=== PATIENT | male | born 1930 | race Caucasian/White ===

== ENCOUNTER 2016-08-16 00:53 | Emergency (ER) ==
[2016-08-16] MEDS ORDERED: SODIUM CHLORIDE 1,000 ML IV STA (00:57)
[2016-08-16 01:04] VITALS: BP 144/70; TEMP 98.3; BMI 23.4
--- NOTE | 2016-08-16 01:04 | ED.PDOC ---
General ED Provider: Dr. COURTNEY GRANDE Chief Complaint: Syncope Stated Complaint: Patient is brought by a rn palliative care who while walking to the bathroom almost had a syncopal episode a wheelchar had to be brought behind him to prevent a fall. Has been more aggitated recently. Otherwise has been eating or drinking ok. Time Seen by Physician: 01:00 Exam Limitations: No limitations Nursing and Triage Documentation Reviewed and Agree: Yes Neurological Complaint Exam - Syncope/Near Syncope Complaint/Exam Onset/Duration: 1 hour ago Symptoms Are: Resolved Number of Episodes: 1 Frequency of Episodes: 1 Episodes Witnessed: Yes Loss of Consciousness: No Associated Head Trauma: No Activity at Onset: Unknown Aggravating: None Associated Signs and Symptoms: Reports: Lightheadedness, Dizziness, Weakness. Denies: Pain, Decreased oral intake, Vomiting, Diarrhea, GI blood loss, Short of air, Chest pain, Palpitations, Diaphoresis, AMS, Numbness, Headache, Seizure , Remote head trauma, Recent head trauma Cardiac Risk Factors: Reports: None GI Bleed Risk Factors: Reports: None Dysrhythmia Risk Factors: Reports: None Related Surgical History: Reports: None JVD Present: No Carotid Bruit Present: No Rectal Heme Positive: No Glascow Coma Scale (see protocol): 15 Nystagmus Present: No Gag Reflex Present: No Meningeal Signs Positive: No Focal Weakness: Present: None Focal Sensory Loss: Present: None Gait: Unsteady Babinski Sign: Negative Right, Negative Left Derby-Hallpike Test Positive: No Differential Diagnoses: SC, CVA, Metabolic Reaction Quality Indicators for Cardiac Chest Pain: EKG in 10min. Quality Indicator For Non-Traumatic Chest Pain/Syncope: EKG Performed Review of Systems - Review Of Systems Constitutional: Reports: Weakness Eyes: Reports: Other (Linited due to condition. 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, Other (mental retardation) Musculoskeletal: Reports: None Cancer: Reports: None - Surgical History General Surgical History: Reports: Unknown - Family History Family History: Reports: Unknown - Social History Smoking Status: Never smoker Hx Substance Use: No Alcohol Screening: None Physical Exam - Physical Exam Appearance: Well-appearing, Ill-appearing, No pain distress, Well-nourished Ill-appearing: Mild Eyes: DULCE MARIA, EOMI, Conjunctiva clear ENT: Nose normal, Oropharynx normal Neck: Supple Respiratory: Airway patent, Breath sounds clear, Breath sounds equal, Respirations nonlabored Cardiovascular: RRR, Pulses normal, No rub, No murmur GI/: Soft, Nontender, No masses, Bowel sounds normal, No Organomegaly Musculoskeletal: Normal strength, ROM intact, No edema, No calf tenderness Skin: Warm, Dry, Normal color Neurological: Sensation intact, Motor intact (but rigidity noted ), Cranial nerves intact, Alert, Oriented Psychiatric: Anxious Interpretation - Radiology Interpretation Radiology Interpretation By: Radiologist Radiology Results: No acute changes (Atrophy Ventriculaomeagaly stable) Exam Interpreted: CT Scan (Head Negative ) - EKG Interpretation Time of EKG #1: 01:14 Rate: Normal Rhythm: Sinus Ectopy: None [place]: [place] Critical Care Note - Critical Care Note Total Time (mins): 0 Course - Course Hematology/Chemistry: 08/16/16 01:00 08/16/16 01:00 Orders, Labs, Meds: Lab Review 08/16/16 01:00 WBC 6.97 RBC 3.51 L Hgb 10.7 L Hct 32.9 L MCV 93.7 MCH 30.5 MCHC 32.5 RDW Coeff of Dianna 13.9 Plt Count 234 Immature Gran % (Auto) 0.1 Neut % (Auto) 67.2 Lymph % (Auto) 22.7 [place] % (Auto) 8.3 Eos % (Auto) 1.0 Baso % (Auto) 0.7 Immature Gran # (Auto) 0.0 Neut # 4.7 Lymph # 1.6 [place] # 0.6 Eos # 0.1 Baso # 0.1 Sodium 141 Potassium 4.0 Chloride 106 Carbon Dioxide 24 Anion Gap 15.0 BUN 18 Creatinine 0.74 Estimated GFR (MDRD) 100.00 BUN/Creatinine Ratio 24.32 Glucose 104 Calcium 8.7 Total Bilirubin 0.30 AST 24 ALT 23 Alkaline Phosphatase 126 H Total Creatine Kinase 104 Troponin I < 0.0100 Total Protein 7.1 Albumin 3.6 Globulin 3.5 Albumin/Globulin Ratio 1.03 Orders Category Date Time Status EKG-(ED ONLY) Stat CARDIO 08/16/16 00:57 Completed ED IV/MEDIPORT/POWERPORT .ONCE EMERGENCY 08/16/16 00:57 Active CBC W/ AUTO DIFF Stat LAB 08/16/16 01:00 Completed COMPREHENSIVE METABOLIC PANEL Stat LAB 08/16/16 01:00 Completed CREATINE KINASE Stat LAB 08/16/16 01:00 Completed TROPONIN I Stat LAB 08/16/16 01:00 Completed 0.9 % Sodium Chloride [Saline Flush] MEDS 08/16/16 00:57 Discontinued 1 syr IVF PRN PRN Sodium Chloride 0.9% [Sodium Chloride] 1,000 ml MEDS 08/16/16 00:57 Discontinued IV 125 mls/hr CT HEAD W/O CONTRAST Stat RADS 08/16/16 00:57 Completed Medications Discontinued Medications Generic Name Dose Route Start Last Admin Trade Name Freq PRN Reason Stop Dose Admin Sodium Chloride 1,000 mls @ 125 mls/hr 08/16/16 00:57 08/16/16 01:45 Sodium Chloride IV 08/16/16 08:56 125 mls/hr .Q8H STA Administration Sodium Chloride 1 syr 08/16/16 00:57 Saline Flush IVF PRN PRN To flush IV Vital Signs: Temp Pulse Resp BP Pulse Ox 08/16/16 00:54 98.3 F 90 16 144/70 H 99 Departure - Departure Time of Disposition: 02:01 Disposition: HOME SELF-CARE Discharge Problem: Near syncope Instructions: Syncope (ED) Condition: Stable Pt referred to PMD for follow-up: Yes Additional Instructions: Push fluids Return to ER if worse Follow up with PCP in 3 days Allergies/Adverse Reactions: Allergies tuberculin, purified protein deriva [tuberculin,purif.prot.deriv.] Adverse Reaction (Verified 08/16/16 02:02) Home Medications: Ambulatory Orders Acetaminophen [Tylenol] 650 mg PO Q4H PRN 05/15/14 Calcium Carbonate/Vitamin D3 [Caltrate 600 + D Tablet] 1 each PO BID 05/15/14 Finasteride [Proscar] 5 mg PO BEDTIME 05/15/14 Magnesium Hydroxide [Milk of Magnesia] 30 ml PO EVERY OTHER DAY 05/15/14 Polyethylene Glycol 3350 [Miralax] 17 gm PO DAILY 05/15/14 Sennosides/Docusate Sodium [Senokot-S Tablet] 2 each PO BID 05/15/14 Tamsulosin HCl [Flomax] 0.4 mg PO BEDTIME 05/15/14 Aspirin [Aspirin EC] 325 mg PO DAILYWM 05/07/15 Disposition Discussed With: Patient
[2016-08-16 01:44] LABS: BASOPHILS # (AUTO) 0.1 K/uL (0-0.2); BASOPHILS % (AUTO) 0.7 % (0.0-3.0); EOSINOPHILS # (AUTO) 0.1 K/ul (0.0-0.7); HEMATOCRIT 32.9 % (42.0-52.0); HEMOGLOBIN 10.7 g/dl (14.0-18.0); IMMATURE GRANULOCYTE % (AUTO) 0.1 % (0.0-5.0); LYMPHOCYTES # (AUTO) 1.6 K/uL (0.60-3.4); LYMPHOCYTES % (AUTO) 22.7 (10.0-50.0); MEAN CORPUSCULAR HEMOGLOBIN 30.5 pg (27.0-31.0); MEAN CORPUSCULAR HGB CONC 32.5 (31.8-35.4); MEAN CORPUSCULAR VOLUME 93.7 fl (80.0-94.0); MONOCYTES # (AUTO) 0.6 K/uL (0.4-2.0); MONOCYTES % (AUTO) 8.3 (0-10); NEUTROPHILS # (AUTO) 4.7 K/ul (2.0-6.9); NEUTROPHILS % (AUTO) 67.2; PLATELET COUNT 234 10^3/uL (140-440); RED BLOOD COUNT 3.51 10^6/ul (4.70-6.10); WHITE BLOOD COUNT 6.97 K/ul (4.2-10.2)
--- NOTE | 2016-08-16 01:59 | CT ---
EXAM: CT brain without contrast HISTORY: Near syncope TECHNIQUE: CT of the brain without intravenous contrast FINDINGS: There is no acute hemorrhage midline shift or mass effect. No abnormal extra-axial fluid collections. There is moderate ventriculomegaly probably stable from 11/12/2015. Generalized corti vivek atrophy, moderate. Chronic microvascular changes of the white matter tracts, mild. The bony cr anium appears normal. The visualized paranasal sinuses are clear. Soft tissues without significant a bnormality. IMPRESSION: 1. Involutional atrophy and chronic microvascular changes of the white matter tracts. 2. Ventriculomegaly stable from 11/12/2015.
[2016-08-16 02:05] LABS: ALANINE AMINOTRANSFERASE 23 U/L (12-78); ALBUMIN 3.6 g/dL (3.4-5.0); ALBUMIN/GLOBULIN RATIO 1.03; ALKALINE PHOSPHATASE 126 U/L (56-119); ASPARTATE AMINO TRANSFERASE 24 U/L (15-37); BLOOD UREA NITROGEN 18 mg/dL (7-18); BUN/CREATININE RATIO 24.32; CALCIUM 8.7 mg/dL (8.2-10.2); CARBON DIOXIDE 24 mmol/L (23-31); CHLORIDE 106 mmol/L (98-107); CREATINE KINASE 104 U/L; CREATININE 0.74 mg/dL (0.60-1.10); GLUCOSE 104 mg/dL (82-115); SODIUM 141 mmol/L (136-145); TOTAL PROTEIN 7.1 g/dL (5.8-8.1)
== END 2016-08-16 03:09 | disposition home or self-care (01) ==
LOC: ED 00:53
DX: R55 Syncope and collapse (principal); I10 Essential (primary) hypertension; F79 Unspecified intellectual disabilities; Z79.899 Other long term (current) drug therapy
CPT/HCPCS: 36415; 80053; 82550; 84484; 85025; 93005; 93010; 96360; 99283

== ENCOUNTER 2016-08-31 08:44 | Emergency (ER) ==
[2016-08-31 08:52] VITALS: BP 158/72; TEMP 97.7; BMI 21.3
[2016-08-31 09:25] LABS: BASOPHILS # (AUTO) 0.1 K/uL (0-0.2); BASOPHILS % (AUTO) 0.7 % (0.0-3.0); EOSINOPHILS % (AUTO) 0.6 % (0.0-7.0); HEMATOCRIT 33.5 % (42.0-52.0); IMMATURE GRANULOCYTE % (AUTO) 0.1 % (0.0-5.0); LYMPHOCYTES # (AUTO) 1.3 K/uL (0.60-3.4); LYMPHOCYTES % (AUTO) 17.6 (10.0-50.0); MEAN CORPUSCULAR HEMOGLOBIN 30.9 pg (27.0-31.0); MEAN CORPUSCULAR HGB CONC 32.8 (31.8-35.4); MEAN CORPUSCULAR VOLUME 94.1 fl (80.0-94.0); MONOCYTES # (AUTO) 0.7 K/uL (0.4-2.0); MONOCYTES % (AUTO) 9.4 (0-10); NEUTROPHILS # (AUTO) 5.1 K/ul (2.0-6.9); NEUTROPHILS % (AUTO) 71.6; PLATELET COUNT 247 10^3/uL (140-440); RED BLOOD COUNT 3.56 10^6/ul (4.70-6.10); WHITE BLOOD COUNT 7.12 K/ul (4.2-10.2)
[2016-08-31 09:44] LABS: ALBUMIN 3.8 g/dL (3.4-5.0); ALBUMIN/GLOBULIN RATIO 1.09; ANION GAP 12.1; BILIRUBIN,TOTAL 0.32 mg/dL (0.00-1.20); BUN/CREATININE RATIO 22.36; CREATININE 0.76 mg/dL (0.60-1.10); POTASSIUM 4.1 mmol/L (3.5-5.1); TOTAL PROTEIN 7.3 g/dL (5.8-8.1)
--- NOTE | 2016-08-31 09:52 | CT ---
EXAM: CT of the chest without contrast History: Cough. Comparison: CT abdomen pelvis 08/31/2016, chest radiograph 11/12/2015 Technique: Multiplanar CT images through the thorax were obtained without the administration of IV contrast Findings: Upper limits of normal heart size. Valvular calcifications of the heart. No pericardial effusion. Great vessels are grossly unremarkable on this noncontrast study. No pathologically enl arged axillary or mediastinal lymph nodes. Evaluation for hilar lymph nodes is limited due to the l ack of contrast administration but no bulky hilar adenopathy is seen. No pneumothorax and no pleural fluid. Mild lower lobe bronchial wall thickening and minimal bibasil ar ground-glass changes. No suspicious lung nodules or lung masses. For details in the upper abdomen, please see dedicated CT abdomen pelvis done on the same day. No a cute osseous abnormalities. Diffuse idiopathic skeletal hyperostosis of the thoracic spine. Impression: 1. Mild lower lobe bronchial wall thickening most likely infectious or inflammatory etiology. 2. Mild bibasilar ground-glass opacities either related to dependent atelectasis or minimal pneumon itis.
--- NOTE | 2016-08-31 10:06 | CT ---
EXAM: CT abdomen pelvis without contrast HISTORY: Pain COMPARISON: None TECHNIQUE: CT abdomen pelvis performed without intravenous contrast. Coronal and sagittal reformat margarette images obtained. FINDINGS: Please see separate report CT chest regarding findings in the lower chest. No free air. No acute abnormalities of the bones. There is degenerative change in the spine. Evaluation organ parenchyma limited without contrast. There is a 1 cm hypodensity in the liver that is too small to characterize. There is a small gallstone. Pancreas appears normal. Spleen appears normal, excepti ng for granulomatous calcification. Adrenals appear normal. No hydronephrosis or nephrolithiasis. No calculi visualized in normal course of the ureters. Tiny right posterior bladder calculi versus minimal bladder wall calcification. Prostate normal in size. The right fat-containing inguinal he rnia. Aorta normal in caliber with atherosclerosis. No lymphadenopathy or ascites. Stomach appear s normal. No dilated loops small bowel. Appendix appears normal. There is abnormal configuration of the cecum and distal ileum with swirling of the mesentery and vascular and bowel in this region ( coronal image 21 - 43). Additionally, the central mesenteric vessels are abnormal in course and cou rse abnormally to the right into this region. Mild haziness of the mesentery in this region. Additi onally, small bowel located to the right of the large bowel in the right abdomen. Though incomplete ly imaged on the prior examination CT pelvis 05/24/2014, this configuration of the bowel appears new from prior examination. Findings are suggestive of an internal hernia. Mild moderate fecal retent ion. IMPRESSION: 1. Findings suggesting internal hernia right abdomen with abnormal configuration of the cecum and d istal small bowel. No evidence for obstruction at this time. Surgical consultation recommended. 2. Mild to moderate fecal retention. 3. Cholelithiasis. 4. Several tiny bladder calculi versus minimal bladder wall calcification. Critical finding #[address] Adams 9:58 a.m. 08/31/2016
--- NOTE | 2016-08-31 10:37 | ED.PDOC ---
General ED Provider: Dr. MEGGAN TELLEZ Chief Complaint: Weakness Stated Complaint: weakness Time Seen by Physician: 09:00 (nurse at bedside ) Mode of Arrival: Wheelchair Information Source: Assisted Living Primary Care Provider: KATI EUGENE Nursing and Triage Documentation Reviewed and Agree: Yes (candis was present during abdominal exam pt had no pain) Miscellaneous Complaint Exam - Complex/Multi-System Complaint/Exam Symptoms Are: Resolved Episodes Lasting: Weeks Initial Severity: Mild Current Severity: None Location of Pain: none Associated Signs and Symptoms: Denies: Decreased responsiveness, Confusion, Agitation, Dizziness, Weakness, Syncope, Headache, Short of air, Cough, Wheezing , Hemoptysis, Chest pain, Palpitations, Edema, Nausea, Vomiting, Diarrhea, Abdominal pain, Back pain, Dysuria, Hematemesis, Melena, Decreased oral intake, Fever, Diaphoresis, Immunocompromised, Anticoagulation Therapy, Recent medication changes, Indwelling registered medical transcriptionist, Prior MRSA, Prior VRE, Recent trauma, Remote trauma Recent Echo/LV Function: No Respiratory Distress: None JVD Present: No Tachypnea Present: No Stridor Present: No Abdominal Findings: Present: Normal findings Glascow Coma Scale (see protocol): 15 Meningeal Signs Positive: No Focal Weakness: Present: None Focal Sensory Loss: Present: None Gait: Normal Gag Reflex Present: Yes Babinski Sign: Negative Right, Negative Left Skin Findings: Present: Normal findings Joint Swelling Present: No Differential Diagnosis: Metabolic Abnormality Quality Indicators for Cardiac Chest Pain: EKG in 10min. Quality Indicators for AMI: EKG in 10min. Review of Systems - Review Of Systems Constitutional: Reports: Weakness Eyes: Reports: No symptoms Ears, Nose, Mouth, Throat: Reports: No symptoms Respiratory: Reports: No symptoms Cardiac: Reports: No symptoms GI: Reports: No symptoms : Reports: No symptoms Musculoskeletal: Reports: No symptoms Skin: Reports: No symptoms Neurological: Reports: No symptoms Endocrine: Reports: No symptoms Hematologic/Lymphatic: Reports: No symptoms All Other Systems: Reviewed and Negative Past Medical History - Past Medical History Previously Healthy: Yes Endocrine: Reports: None Cardiovascular: Reports: Hypertension Respiratory: Reports: None Hematological: Reports: None Gastrointestinal: Reports: None Genitourinary: Reports: None Neuro/Psych: Reports: None, Other (mental retardation) Musculoskeletal: Reports: None Cancer: Reports: None - Surgical History General Surgical History: Reports: Unknown - Family History Family History: Reports: Unknown - Social History Smoking Status: Never smoker Hx Substance Use: No Alcohol Screening: None Physical Exam - Physical Exam Appearance: Well-appearing, No pain distress, Well-nourished Eyes: DULCE MARIA, EOMI, Conjunctiva clear ENT: Ears normal, Nose normal, Oropharynx normal Respiratory: Airway patent, Breath sounds clear, Breath sounds equal, Respirations nonlabored Cardiovascular: RRR, Pulses normal, No rub, No murmur GI/: Soft, Nontender, No masses, Bowel sounds normal, No Organomegaly Musculoskeletal: Normal strength, ROM intact, No edema, No calf tenderness Skin: Warm, Dry, Normal color Neurological: Sensation intact, Motor intact, Reflexes intact, Cranial nerves intact, Alert, Oriented Psychiatric: Affect appropriate, Mood appropriate Interpretation - Radiology Interpretation Radiology Interpretation By: Radiologist Radiology Results: Positive (herina right abdomen discussed with doctor estrellita he stated since he is pain free he would not operate at this time) Critical Care Note - Critical Care Note Total Time (mins): 0 Course - Course Hematology/Chemistry: 08/31/16 09:20 08/31/16 09:20 Orders, Labs, Meds: Lab Review 08/31/16 09:20 WBC 7.12 RBC 3.56 L Hgb 11.0 L Hct 33.5 L MCV 94.1 H MCH 30.9 MCHC 32.8 RDW Coeff of Dianna 14.1 Plt Count 247 Immature Gran % (Auto) 0.1 Neut % (Auto) 71.6 Lymph % (Auto) 17.6 [place] % (Auto) 9.4 Eos % (Auto) 0.6 Baso % (Auto) 0.7 Immature Gran # (Auto) 0.0 Neut # 5.1 Lymph # 1.3 [place] # 0.7 Eos # 0.0 Baso # 0.1 Sodium 139 Potassium 4.1 Chloride 107 Carbon Dioxide 24 Anion Gap 12.1 BUN 17 Creatinine 0.76 Estimated GFR (MDRD) 97.00 BUN/Creatinine Ratio 22.36 Glucose 126 H Lactic Acid 16.3 Calcium 9.0 Total Bilirubin 0.32 AST 22 ALT 25 Alkaline Phosphatase 128 H Total Protein 7.3 Albumin 3.8 Globulin 3.5 Albumin/Globulin Ratio 1.09 Orders Category Date Time Status EKG-(ED ONLY) Stat CARDIO 08/31/16 09:09 Ordered BLOOD CULTURE Stat LAB 08/31/16 09:20 Received CBC W/ AUTO DIFF Stat LAB 08/31/16 09:20 Completed COMPREHENSIVE METABOLIC PANEL Stat LAB 08/31/16 09:20 Completed LACTIC ACID Stat LAB 08/31/16 09:20 Completed URINALYSIS C & S IF INDICATED Stat LAB 08/31/16 09:[address] ABDOMEN/PELVIS WO CONTRAST Stat RADS 08/31/16 09:[address] CHEST W/O CONTRAST Stat RADS 08/31/16 09:04 Completed Vital Signs: Temp Pulse Resp BP Pulse Ox 08/31/16 08:44 97.7 F 98 H 18 158/72 H 96 Departure - Departure Time of Disposition: 10:38 Disposition: HOME SELF-CARE Discharge Problem: Weakness generalized Instructions: Weakness (ED) Condition: Good Pt referred to PMD for follow-up: No Additional Instructions: Please call your Family Physician as soon as possible to schedule a follow-up appointment. Allergies/Adverse Reactions: Allergies tuberculin, purified protein deriva [tuberculin,purif.prot.deriv.] Adverse Reaction (Verified 08/31/16 08:52) Home Medications: Ambulatory Orders Acetaminophen [Tylenol] 650 mg PO Q4H PRN 05/15/14 Calcium Carbonate/Vitamin D3 [Caltrate 600 + D Tablet] 1 each PO BID 05/15/14 Finasteride [Proscar] 5 mg PO BEDTIME 05/15/14 Magnesium Hydroxide [Milk of Magnesia] 30 ml PO EVERY OTHER DAY 05/15/14 Polyethylene Glycol 3350 [Miralax] 17 gm PO DAILY 05/15/14 Sennosides/Docusate Sodium [Senokot-S Tablet] 2 each PO BID 05/15/14 Tamsulosin HCl [Flomax] 0.4 mg PO BEDTIME 05/15/14 Aspirin [Aspirin EC] 325 mg PO DAILYWM 05/07/15 Cyanocobalamin (Vitamin B-12) [Vitamin B-12] 1,000 mcg PO DAILY 08/31/16 Disposition Discussed With: Patient
[2016-09-08 13:15] LABS: AEROBIC + ANAEROB SUSC Final report (.); BACTERIA IDENTIFICATION Final report (.)
== END 2016-08-31 11:12 | disposition home or self-care (01) ==
LOC: ED 08:44
DX: R53.1 Weakness (principal); I10 Essential (primary) hypertension; F79 Unspecified intellectual disabilities; Z79.899 Other long term (current) drug therapy
CPT/HCPCS: 36415; 80053; 83605; 85025; 87040; 87070; 87077; 87186; 93005; 93010; 99283

== ENCOUNTER 2016-09-04 12:02 | Outpatient (CLI) ==
--- NOTE | 2016-09-04 13:27 | US ---
EXAM: ULTRASOUND CAROTID DUPLEX, BILATERAL HISTORY: Near-syncope FINDINGS: Duenas-scale ultrasound, color Doppler and spectral analysis was performed. Velocities are in meters per second. By duenas scale and color Doppler imaging, there was a large amount of heterogeneous atherosclerotic p laque deposition, especially on the right with some areas near the level of the bulb approaching at least 50% vessel diameter. RIGHT: External carotid artery peak systolic velocity: 1.4 Common carotid artery peak systolic velocity/end diastolic velocity: 0.7/0.1 Internal carotid artery peak systolic velocity: 1.1 ICA/CCA peak systolic velocity ratio: 1.5 ICA end diastolic velocity: 0.3 LEFT: External carotid artery peak systolic velocity: 1.3 Common carotid artery peak systolic velocity/end diastolic velocity: 0.8/0.1 Internal carotid artery peak systolic velocity: 0.7 ICA/CCA peak systolic velocity ratio: 0.9 ICA end diastolic velocity: 0.2 The right and left vertebral arteries were antegrade. IMPRESSION: 1. By duenas scale and color Doppler imaging, there was a large amount of heterogeneous atherosclerot ic plaque deposition, especially on the right with some areas near the level of the bulb approaching at least 50% vessel diameter. 2. Internal carotid artery peak systolic velocities and ICA/CCA peak systolic velocity ratios indic ate no hemodynamically significant stenosis bilaterally. 3. Both vertebral arteries were antegrade. 4. The duenas scale and color Doppler imaging findings do not completely correlate with velocities. Consider correlation with CTA neck if indicated clinically.
== END 2016-09-04 12:03 | disposition home or self-care (01) ==
LOC: RAD 12:02
PROVIDERS: ATTEND Physician Assistant
DX: R55 Syncope and collapse (principal)

== ENCOUNTER 2016-09-17 09:55 | Outpatient (CLI) ==
--- NOTE | 2016-09-23 08:11 | ECHOCOLOR ---
Date of Exam: 09/17/16 Ordering Physician: FEMI Reason for Echo: NEAR SYNCOPE M-Mode Normal Adult Results LV Dimensions Normal Adult Results AoV Opening excursions >1.6 1.1 LVEDD-base- 3.5-5.8 5.8 Ao root dimensions 2.0-3.7 2.8 LVESD-base- 3.1-4.6 L. Atrium dimensions 1.9-3.8 4.0 Post. Wall thickness 0.8-1.1 1.2 IV septum (thickness) 0.7-1.2 1.3 Post. Wall excursion 0.72-1.3 NORMAL Septal motion NORMAL Systolic motion R. Ventricular cavity 1.5-2.0 NORMAL LVEF 60% 50 TO 55% Paradoxical septal wall motion NORMAL 2-D: CALCIFIC AORTIC VALVES WITH AORTIC STENOSIS--NORMAL LEFT VENTRICLE CONTRACTILITY--MITRAL VALVE NORMAL- NO EFFUSION, NO THROMBUS--ENLARGED LEFT VENTRICLE CAVITY--DIFFICULT STUDY DOPPLER WITH COLOR FLOW: DIFFICULT STUDY--AOV PPG 40, AOV MPG 21, AOV AREA 1.0 CM2 M-MODE: MV: NORMAL AV: CALCIFIC WITH AORTIC STENOSIS--SEPERATION OF CUSPS NOTED TV: NORMAL PV: CHAMBER SIZE: ENLARGED LEFT ATRIAL AND LEFT VENTRICLE CAVITIES WALL MOTION: NORMAL PERICARDIUM: NORMAL INTERPRETATION: 1. MILD LEFT VENTRICULAR HYPERTROPHY WITH BORDERLINE ENLARGED LEFT VENTRICLE CAVITY (MAYBE) 2. LEFT VENTRICULAR EJECTION FRACTION 50 TO 55% 3. CALCIFIC--MODERATE AORTIC STENOSIS 4. DIFFICULT STUDY CONSIDERING PATIENT'S SYMPTOMS, RECOMMEND RANDI RECOMMEND TRANS ESOPHAGEAL ECHO (RANDI) MTDD
== END 2016-09-17 09:56 | disposition home or self-care (01) ==
LOC: CAR 09:55
PROVIDERS: ATTEND Family Medicine
DX: R55 Syncope and collapse (principal)

== ENCOUNTER 2016-09-19 10:59 | Outpatient (CLI) | payer OTHER | END 2016-09-19 11:00 | disposition home or self-care (01) | LOC: LAB 10:59 | PROVIDERS: ATTEND Physician Assistant | DX: R89.5 Abnormal microbiological findings in specimens from other organs, systems and tissues (principal) | CPT/HCPCS: 36415; 87040 ==

== ENCOUNTER 2017-02-10 09:56 | Outpatient (CLI) ==
--- NOTE | 2017-02-10 11:44 | DEXA ---
EXAM: DEXA scan. HISTORY: Osteopenia. COMPARISON: None available. TECHNIQUE: [employer] [id number]. DEXA scan lumbar spine performed. Quality of the study is good. BMD is 1.288 grams per square cent imeter. T-score 0.6. Z-score 1.6. DEXA scan hips performed. Quality of the study is good. BMD 0.732 grams per square centimeter. T-s core -2.6. Z-score -1.0. IMPRESSION: According to the World Health Organization classification, lumbar spine bone mineral density is norm al. Hip bone mineral density demonstrates osteoporosis, with high fracture risk. Ten-year major os teoporotic fracture risk is 7.1%. Ten-year hip fracture risk is 3.3%.
== END 2017-02-10 09:57 | disposition home or self-care (01) ==
LOC: RAD 09:56
PROVIDERS: ATTEND Physician Assistant
DX: M85.9 Disorder of bone density and structure, unspecified (principal)

== ENCOUNTER 2017-09-14 09:54 | Outpatient (RCR) ==
--- NOTE | 2017-09-14 11:46 | OUTEVAL ---
Date of Service:09/14/17 SUBJECTIVE: Caregiver with Mr. Ackerman states the order from the Physician Machine Technician was for strengthening exercises. States patient has Osteoarthritis, especially in his hips. Mr. Ackerman lives at [facility] and requires assistance with all mobility. Caregiver states Mr. Ackerman is not very motivated to ambulate. He requires assistance with all ambulation. He has a lift chair at home due to difficulty with sit to stand transfers. He stays in his wheelchair at [facility]. OBJECTIVE: presents to the department via wheelchair. He does not consistently follow verbal commands. With coaxing, patient requires minimal to moderate assistance for sit to stand transfer from his wheelchair. His center of gravity is posteriorly displaced and hips and knees are moderately flexed. He requires minimal to moderate assistance with ambulation to guide walker and maintain his balance. Demonstrates forward flexed posture. He does not clear either foot during swing phase, due to decreased hip and knee flexion during swing phase. Demonstrates very limited joint mobility of both hips and demonstrates 10 to 15 degree knee flexion contractures bilaterally. Patient unable to follow verbal cues to perform active exercises. Requires tactile cuing to move his extremities. Caregiver given instructions for Hip flexion in sitting to try with patient. Also encouraged positioning patient in sitting with legs elevated to stretch bilateral hamstrings. Recommend ambulating patient with his walker with 1-2 pound ankle weights to give him some resistance to gain strength in his hips and knees. ASSESSMENT: Patient presents with a diagnosis of Osteoarthritis. Demonstrates limited joint mobility of the hips and knees. Demonstrates difficulty following verbal commands to perform active exercises. He may do best with functional activity of walking to increase his mobility and exercise his legs. PLAN: Caregiver given Home exercise instructions to continue with patient at [facility]. No further therapy sessions indicated at this time. MTDD
== END 2017-10-10 ==
PROVIDERS: ATTEND Physician Assistant
DX: M19.90 Unspecified osteoarthritis, unspecified site (principal)

== ENCOUNTER 2018-04-29 08:33 | Outpatient (CLI) ==
--- NOTE | 2018-04-29 14:14 | CT ---
EXAM: CT abdomen pelvis without contrast HISTORY: Abdominal pain COMPARISON: 08/31/2016 TECHNIQUE: CT abdomen pelvis performed without intravenous contrast. Coronal and sagittal reformatt ed images obtained. FINDINGS: Motion artifact limits evaluation. Lung bases clear. No free air. No acute abnormalitie s of the bones. Degenerative change in the spine. Heart normal in size. Evaluation organ parenchym a limited without contrast. Liver unremarkable. Sub centimeter. Stable small hypodensity in the li clement that is too small to characterize. Gallbladder unremarkable. Pancreas unremarkable. Spleen unr emarkable. Adrenals unremarkable. Kidneys unremarkable. Aorta normal in caliber. Moderate atheros clerosis. Mild bladder wall thickening. Prostate normal in size. Small bilateral fat containing ing uinal hernias. No lymphadenopathy or ascites. Stomach appears normal. No dilated loops small bowel . Appendix not visualized. Small and large bowel are markedly difficult to trace. Abnormal configur ation of the large and small bowel in the right abdomen that may represent an internal hernia. No ev idence for obstruction. Additionally, there is a loop of bowel that probably represents transverse c olon that demonstrates focal thickening coronal image 36 without inflammation. Underlying mass lesio n cannot be excluded. IMPRESSION: 1. Unexpected finding: Abnormal configuration of the large and small bowel in the right abdomen ariane t may represent an internal hernia. No evidence for obstruction. Additionally, there is a loop of b owel that probably represents transverse colon that demonstrates focal thickening without inflammatio n. Underlying mass lesion cannot be excluded. Recommend follow-up / further evaluation. 2. Bladder wall thickening may relate to changes of chronic outlet obstruction or cystitis. 3. Atherosclerosis
== END 2018-04-29 08:34 | disposition home or self-care (01) ==
LOC: RAD 08:33
PROVIDERS: ATTEND Physician Assistant
DX: R10.9 Unspecified abdominal pain (principal)

== ENCOUNTER 2018-07-21 11:14 | Outpatient (CLI) | payer OTHER ==
--- NOTE | 2018-07-21 11:46 | DI ---
Exam: Single view of the abdomen. Comparison: CT examination performed 04/29/2018. Reason for exam: Mucus in stool. FINDINGS: Air-filled loops of bowel are seen within the abdomen. The cecum appears prominent in siz e. There is a moderate stool burden seen within the transverse and descending colon. Degenerative c hanges are seen in the lumbosacral spine. Impression: 1. Similar appearing fluid and air-filled loops of bowel are seen in the right lower quadrant. Imag ing findings may represent obstruction, ileus, or chronic dilatation. If clinical concern exists, fu rther evaluation may be performed with CT imaging. 2. Similar appearing degenerative findings in the lumbosacral spine and pelvis
== END 2018-07-21 11:15 | disposition home or self-care (01) ==
LOC: RAD 11:14
PROVIDERS: ATTEND Nurse Practitioner Family
DX: R19.5 Other fecal abnormalities (principal)

== ENCOUNTER 2018-08-14 02:15 | Emergency (ER) | payer OTHER ==
[2018-08-14 02:33] VITALS: BMI 22.7
[2018-08-14] MEDS ORDERED: XOPENEX 1.25 MG NEB STA (02:34)
[2018-08-14] MEDS ORDERED: DUONEB NEB STA (02:34)
[2018-08-14] MEDS ORDERED: LASIX IVP STA ×2 (02:36→04:20)
--- NOTE | 2018-08-14 03:46 | CT ---
EXAM: CT chest without intravenous contrast 08/14/2018. Sagittal and coronal reformatted images obt ained HISTORY: Dyspnea COMPARISON: 08/31/2016 FINDINGS: The heart size appears stable and within normal limits. There is no pericardial effusion. Valvular calcifications appear stable. There are moderate bilateral pleural effusions. Reticulonodular and ground-glass infiltrate is prese nt within both lungs. This involves portions of all lobes of both lungs. This likely represents mul tifocal pneumonia. There is consolidation overlying both pleural effusions which may represent atele ctasis and/or pneumonia. There is severe diffuse bronchial wall thickening likely due to bronchitis/bronchiolitis. Multiple a irways most prominent in the lower lobes show complete occlusion. Mucous plugging may contribute to this appearance. There is likely a component of diffuse pulmonary edema. Limited views of the upper abdomen show no acute abnormality. No acute osseous abnormality. IMPRESSION: 1. Moderate bilateral pleural effusions. 2. Reticulonodular and ground-glass infiltrates throughout both lungs. These appearance is suggesti ve of multifocal pneumonia. 3. Pulmonary edema. 4. Severe bronchial wall thickening throughout both lungs. Multiple airways show complete occlusion . This is likely infectious/inflammatory. There is likely a component superimposed mucous plugging. 5. Technically limited examination due to lack of intravenous contrast.
--- NOTE | 2018-08-14 04:17 | ED.PDOC ---
General ED Provider: Dr. LONDON TRAVIS-ER Chief Complaint: Respiratory Complaint Stated Complaint: brought by mcfppsychometrician in resp distress Time Seen by Physician: 02:20 Mode of Arrival: Wheelchair Information Source: Patient, Assisted Living Exam Limitations: No limitations Primary Care Provider: TRAMAINE PONCE Nursing and Triage Documentation Reviewed and Agree: Yes Does patient meet sepsis criteria?: No System Inflammatory Response Syndrome: Not Applicable Sepsis Protocol: For patient's 13 years and over: Temp is 96.8 and below OR 101 and greater Pulse >90 BPM Resp >20/minute Acutely Altered Mental Status Are patient's symptoms suggestive of a new infection, such as: -Pneumonia -Skin, Soft Tissue -Endocarditis -UTI -Bone, Joint Infection -Implantable Device -Acute Abdominal Infection -Wound Infection -Meningitis -Blood Stream Catheter Infection -Unknown Respiratory Complaint Exam - Respiratory Complaint/Exam Onset/Duration: unknown Symptoms Are: Still present Timing: Constant Initial Severity: Mild Current Severity: Moderate Location: Chest Character: Reports: Non-productive cough Alleviating: Reports: None Associated Signs and Symptoms: Reports: Rapid breathing, Dyspnea Status Asthmaticus Risk Factors: Reports: None Home Oxygen Use: No Recent Stress Test: No Recent Echo/LV Function: No Current Antibiotic Use: No Current Asthma Medication Use: No Respiratory Distress: Moderate Inadequate Respiratory Effort: No Dysphagia Present: No Stridor Present: No Accessory Muscle Use: Yes Retractions: Supraclavicular Diminished Breath Sounds: Yes Sinus Tenderness: None Grunting Respirations: No Kussmaul Respirations: No Differential Diagnoses: CHF, Pulmonary Edema, COPD Exacerbation Non-Traumatic Chest Pain Syncope: EKG Performed Review of Systems - Review Of Systems Constitutional: Reports: No symptoms Eyes: Reports: No symptoms Ears, Nose, Mouth, Throat: Reports: No symptoms Respiratory: Reports: Short of air Cardiac: Reports: No symptoms GI: Reports: No symptoms : Reports: No symptoms Musculoskeletal: Reports: No symptoms Skin: Reports: No symptoms Neurological: Reports: No symptoms Endocrine: Reports: No symptoms Hematologic/Lymphatic: Reports: No symptoms All Other Systems: Reviewed and Negative Past Medical History - Past Medical History Previously Healthy: Yes Endocrine: Reports: None Cardiovascular: Reports: Hypertension Respiratory: Reports: None Hematological: Reports: None Gastrointestinal: Reports: None Genitourinary: Reports: None Neuro/Psych: Reports: None, Other (mental retardation) Musculoskeletal: Reports: None Cancer: Reports: None - Surgical History General Surgical History: Reports: Unknown - Family History Family History: Reports: Unknown - Social History Smoking Status: Never smoker Hx Substance Use: No Alcohol Screening: None - Immunizations Tetanus Shot up to Date: (UNKNOWN) Physical Exam - Physical Exam Appearance: Well-appearing, No pain distress, Well-nourished Ill-appearing: Moderate Eyes: DULCE MARIA, EOMI, Conjunctiva clear ENT: Ears normal, Nose normal, Oropharynx normal Neck: Supple Respiratory: Crackles Cardiovascular: RRR, Pulses normal, No rub, No murmur GI/: Soft Musculoskeletal: Normal strength, ROM intact, No edema, No calf tenderness Skin: Warm, Dry, Normal color Neurological: Sensation intact, Motor intact, Reflexes intact, Cranial nerves intact, Alert, Oriented Psychiatric: Affect appropriate, Mood appropriate Interpretation - Radiology Interpretation Radiology Interpretation By: Radiologist Radiology Results: Positive Exam Interpreted: CT Scan - EKG Interpretation Time of EKG #1: 04:17 Rate: Normal, Tachy Rhythm: Other Ectopy: None [place]: NL ST Segment: Normal Interpretation: see report Re-Evaluation - Re-Evaluation Time of Re-Evaluation: 04:17 Status: Improved Vital Signs Stable: Yes Pain Level: o Appearance: NAD Lungs: Clear Skin: Warm and Dry CV: RRR Physician Notification - Case Discussed Physician Notified: dr prince Time of Notification: 04:18 Critical Care Note - Critical Care Note Total Time (mins): 45 Course - Course Hematology/Chemistry: 08/14/18 02:52 08/14/18 02:52 Orders, Labs, Meds: Lab Review 08/14/18 08/14/18 08/14/18 02:20 02:32 02:52 WBC 18.06 H RBC 4.59 L Hgb 14.5 Hct 45.8 MCV 99.8 H MCH 31.6 H MCHC 31.7 L RDW Coeff of Dianna 13.0 Plt Count 278 Immature Gran % (Auto) 0.6 Neut % (Auto) 83.9 Lymph % (Auto) 6.6 L [place] % (Auto) 8.7 Eos % (Auto) 0.0 Baso % (Auto) 0.2 Immature Gran # (Auto) 0.1 Neut # (Auto) 15.2 H Lymph # (Auto) 1.2 [place] # (Auto) 1.6 Eos # (Auto) 0.0 Baso # (Auto) 0.0 D-Dimer (Manual) Puncture Site Lbrach O2 Saturation 87.0 L ABG pH 7.195 L* ABG pCO2 45.8 H ABG pO2 65.0 L ABG HCO3 17.7 L ABG Total CO2 19 L ABG Base Excess -10 L Carlos Alberto Test + O2 Delivery Device Nrb Oxygen Liter Flow 15.00 FiO2 % 100.0 Sodium Potassium Chloride Carbon Dioxide Anion Gap BUN Creatinine Estimated GFR (MDRD) BUN/Creatinine Ratio Glucose Calcium Total Bilirubin AST ALT Alkaline Phosphatase Total Creatine Kinase CK-MB (CK-2) CK-MB (CK-2) % Troponin I NT-Pro-B Natriuret Pep Total Protein Albumin Globulin Albumin/Globulin Ratio Influ A Molecular Assay Negative by naat Influ B Molecular Assay Negative by naat 08/14/18 08/14/18 08/14/18 02:52 02:52 02:52 WBC RBC Hgb Hct MCV MCH MCHC RDW Coeff of Dianna Plt Count Immature Gran % (Auto) Neut % (Auto) Lymph % (Auto) [place] % (Auto) Eos % (Auto) Baso % (Auto) Immature Gran # (Auto) Neut # (Auto) Lymph # (Auto) [place] # (Auto) Eos # (Auto) Baso # (Auto) D-Dimer (Manual) 1233.77 Puncture Site O2 Saturation ABG pH ABG pCO2 ABG pO2 ABG HCO3 ABG Total CO2 ABG Base Excess Carlos Alberto Test O2 Delivery Device Oxygen Liter Flow FiO2 % Sodium 139.2 Potassium 4.92 Chloride 100.8 Carbon Dioxide 18.2 L Anion Gap 25.12 BUN 31.5 H Creatinine 1.00 Estimated GFR (MDRD) 71.00 BUN/Creatinine Ratio 31.50 Glucose 247.8 H Calcium 8.86 Total Bilirubin 1.01 AST 88.7 H ALT 52.9 H Alkaline Phosphatase 105.9 Total Creatine Kinase 150.4 CK-MB (CK-2) 12.200 H* CK-MB (CK-2) % 8.1100 Troponin I 1.490 H* NT-Pro-B Natriuret Pep Total Protein 8.10 Albumin 4.55 Globulin 3.55 Albumin/Globulin Ratio 1.28 Influ A Molecular Assay Influ B Molecular Assay 08/14/18 02:52 WBC RBC Hgb Hct MCV MCH MCHC RDW Coeff of Dianna Plt Count Immature Gran % (Auto) Neut % (Auto) Lymph % (Auto) [place] % (Auto) Eos % (Auto) Baso % (Auto) Immature Gran # (Auto) Neut # (Auto) Lymph # (Auto) [place] # (Auto) Eos # (Auto) Baso # (Auto) D-Dimer (Manual) Puncture Site O2 Saturation ABG pH ABG pCO2 ABG pO2 ABG HCO3 ABG Total CO2 ABG Base Excess Carlos Alberto Test O2 Delivery Device Oxygen Liter Flow FiO2 % Sodium Potassium Chloride Carbon Dioxide Anion Gap BUN Creatinine Estimated GFR (MDRD) BUN/Creatinine Ratio Glucose Calcium Total Bilirubin AST ALT Alkaline Phosphatase Total Creatine Kinase CK-MB (CK-2) CK-MB (CK-2) % Troponin I NT-Pro-B Natriuret Pep 07012.000 H Total Protein Albumin Globulin Albumin/Globulin Ratio Influ A Molecular Assay Influ B Molecular Assay Orders Category Date Time Status ABG DRAW REQUEST Stat CARDIO 08/14/18 02:33 Completed EKG-(ED ONLY) Stat CARDIO 08/14/18 02:33 Completed NEBULIZER TREATMENT Stat CARDIO 08/14/18 02:35 Completed ED CALL CENTER PROFESSIONAL APPLIED .ONCE EMERGENCY 08/14/18 02:33 Active IV [ED IV/MEDIPORT/POWERPORT] .ONCE EMERGENCY 08/14/18 02:33 Active OXYGEN [ED APPLY O2] .ONCE EMERGENCY 08/14/18 02:40 Active ABG Stat LAB 08/14/18 02:32 Completed BLOOD CULTURE (ED ONLY) Stat LAB 08/14/18 02:52 Received CBC W/ AUTO DIFF Stat LAB 08/14/18 02:52 Completed CK [CREATINE KINASE] Stat LAB 08/14/18 02:52 Completed COMPREHENSIVE METABOLIC PANEL Stat LAB 08/14/18 02:52 Completed D-DIMER Stat LAB 08/14/18 02:52 Completed FLU A/B MOLECULAR Stat LAB 08/14/18 02:20 Completed MOLECULAR GROUP A STREP Stat LAB 08/14/18 02:20 Completed PRO-BNP [NT-PROBNP] Stat LAB 08/14/18 02:52 Completed TROPONIN I Stat LAB 08/14/18 02:52 Completed 0.9 % Sodium Chloride [Saline Flush] MEDS 08/14/18 02:33 Ordered 1 syr IVF PRN PRN Furosemide [Lasix] MEDS 08/14/18 02:36 Discontinued 20 mg IVP ONCE STA Ipratropium/Albuterol Neb [Duoneb] MEDS 08/14/18 02:34 Discontinued 1 vial NEB ONCE STA Levalbuterol HCl [Xopenex 1.25 mg] MEDS 08/14/18 02:34 Discontinued 1 vial NEB ONCE STA CT CHEST W/O CONTRAST Stat RADS 08/14/18 02:35 Completed Medications Generic Name Dose Route Start Last Admin Trade Name Freq PRN Reason Stop Dose Admin Sodium Chloride 1 syr 08/14/18 02:33 08/14/18 02:45 Saline Flush IVF 1 syr PRN PRN Administration To flush IV Discontinued Medications Generic Name Dose Route Start Last Admin Trade Name Freq PRN Reason Stop Dose Admin Albuterol/Ipratropium 1 vial 08/14/18 02:34 08/14/18 02:40 Duoneb NEB 08/14/18 02:35 1 vial ONCE STA Administration Furosemide 20 mg 08/14/18 02:36 08/14/18 02:44 Lasix IVP 08/14/18 02:37 20 mg ONCE STA Administration Levalbuterol HCl 1 vial 08/14/18 02:34 08/14/18 02:50 Xopenex 1.25 Mg NEB 08/14/18 02:35 1 vial ONCE STA Administration Vital Signs: Temp Pulse Resp BP Pulse Ox 08/14/18 02:17 96.4 F L 132 H 40 H 130/86 72 L Departure - Departure Time of Disposition: 04:18 Disposition: PLACED OBSERVATION Discharge Problem: Elevated troponin, Acute respiratory distress Pulmonary edema Qualifiers: Chronicity: acute Qualified Code(s): J81.0 - Acute pulmonary edema Instructions: Heart Failure (ED) Condition: Poor Pt referred to PMD for follow-up: No IPMP verified?: No Allergies/Adverse Reactions: Allergies tuberculin, purified protein deriva [tuberculin,purif.prot.deriv.] Adverse Reaction (Verified 08/14/18 02:33) Home Medications: Ambulatory Orders Calcium Carbonate/Vitamin D3 [Caltrate 600 + D Tablet] 1 each PO BID 05/15/14 Polyethylene Glycol 3350 [Miralax] 17 gm PO DAILY PRN 05/15/14 Sennosides/Docusate Sodium [Senokot-S Tablet] 2 each PO DAILY 05/15/14 Aspirin [Aspirin EC] 325 mg PO DAILYWM 10/26/15 Cyanocobalamin (Vitamin B-12) [Vitamin B-12] 500 mcg PO DAILY 08/31/16 Acetaminophen [Tylenol] 500 mg PO TID 08/14/18 Eucalyptus Oil/Menthol/Camphor [Vicks Vaporub Ointment] 1 applic TP DAILY Ferrous Sulfate 325 mg PO DAILY 08/14/18 Guaifenesin 5 ml PO TID PRN 08/14/18 Latanoprost/Pf [Latanoprost 0.005% Eye Drop] 1 drop OP BEDTIME 08/14/18 Transfer Form Completed: Yes Disposition Discussed With: Other (attendant of [facility])
[2018-08-14 04:34] VITALS: BP 114/64; TEMP 97.9
== END 2018-08-14 05:00 | disposition short-term general hospital (02) ==
LOC: ED 02:15
DX: R06.03 Acute respiratory distress (principal); J81.0 Acute pulmonary edema; R79.89 Other specified abnormal findings of blood chemistry; R06.00 Dyspnea, unspecified; I10 Essential (primary) hypertension; F79 Unspecified intellectual disabilities; R00.0 Tachycardia, unspecified
CPT/HCPCS: 36415; 80053; 82550; 82553; 82803; 83880; 84484; 85025; 85379; 87040; 87502; 87651; 93005; 93010; 94640; 96374; 96376; 99285